=== PATIENT | male | born 1985 ===

== ENCOUNTER 2021-06-18 07:28 | Outpatient (CLI) | payer OTHER | END 2021-06-18 07:30 | disposition home or self-care (01) | LOC: RX STUDY 07:28 | PROVIDERS: ATTEND Internal Medicine Gastroenterology | DX: K56.600 Partial intestinal obstruction, unspecified as to cause (principal); K56.609 Unspecified intestinal obstruction, unspecified as to partial versus complete obstruction; K59.00 Constipation, unspecified; C18.9 Malignant neoplasm of colon, unspecified; K57.32 Diverticulitis of large intestine without perforation or abscess without bleeding ==